=== PATIENT | female | born 1970 | race Caucasian/White ===

== ENCOUNTER 2016-04-29 13:56 | Emergency (ER) | payer BC ==
[2016-04-29 14:47] VITALS: BP 111/65
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
== END 2016-04-29 16:42 | disposition home or self-care (01) ==
LOC: ER 13:56
DX: F41.9 Anxiety disorder, unspecified (principal)
CPT/HCPCS: 99281